=== PATIENT | male | born 1985 | race Caucasian/White ===

== ENCOUNTER 2019-04-13 17:35 | Emergency (ER) | payer SELFPAY ==
[2019-04-13 17:58] VITALS: BP 127/85; PULSE 112
--- NOTE | 2019-04-13 18:30 | EDM.PDOC ---
ED HPI GENERAL MEDICAL PROBLEM - General Chief Complaint: Lower Extremity Injury/Pain Stated Complaint: R ANKLE INJURY Time Seen by Provider: 04/13/19 18:20 Source of Information: Reports: Patient History Limitations: Reports: No Limitations - History of Present Illness INITIAL COMMENTS - FREE TEXT/NARRATIVE: 33-year-old male presents the ED with an acute injury to his right ankle in the early hours of April 12. Patient states he slipped and fell on the ice. He recognized that he had injured his right ankle initially was able to walk on it slightly but today he is able to only walk on the heel of his leg. Denies any other injuries. Onset: Sudden Onset Date: 04/12/19 Onset Time: 01:00 Duration: Hour(s): Location: Reports: Upper Extremity, Right Quality: Reports: Ache, Throbbing Severity: Moderate Improves with: Reports: Rest Worsens with: Reports: Movement Context: Reports: Trauma (Slipped and fell on the ice with a inversion injury to his right ankle and fell to the ground.). Denies: Activity, Exercise, Lifting (Especially trying to weight-bear.), Sick Contact, Other Associated Symptoms: Reports: No Other Symptoms Treatments [employer]: Reports: NSAIDS Right Ankle Pain Score (Numeric/FACES): 7 - Related Data Allergies Allergy/AdvReac Type Severity Reaction Status Date / Time No Known Allergies Allergy Verified 04/13/19 17:58 Home Meds: Home Meds . 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 Social & Family History - Tobacco Use Smoking Status *Q: Never Smoker Second Hand Smoke Exposure: No - Caffeine Use Caffeine Use: Reports: Coffee - Recreational Drug Use Recreational Drug Use: No - Living Situation & Occupation Living situation: Reports: Occupation: Employed Review of Systems - Review of Systems Review Of Systems: See Below Constitutional: Reports: No Symptoms Eyes: Reports: No Symptoms Ears: Reports: No Symptoms Nose: Reports: No Symptoms Mouth/Throat: Reports: No Symptoms Respiratory: Reports: No Symptoms Cardiovascular: Reports: No Symptoms GI/Abdominal: Reports: No Symptoms Genitourinary: Reports: No Symptoms Musculoskeletal: Reports: No Symptoms Skin: Reports: No Symptoms Neurological: Reports: No Symptoms Psychiatric: Reports: No Symptoms ED EXAM, GENERAL - Physical Exam Exam: See Below Exam Limited By: No Limitations General Appearance: Alert, WD/WN, No Apparent Distress, Other (Capture is listed at 36.8. Heart rate is 112 and sinus. Respiratory 16 BP 127/85 O2 sats 97 % on room air.) Peripheral Pulses: 2+: Posterior Tibial (L), Posterior Tibial (R), Dorsalis Pedis (L), Dorsalis Pedis (R) Extremities: Other (Examination was limited to the right lower extremity. Patient has significant pain on palpation of the head of his right fibula suggesting possible fracture in this area. Squeeze test mid tib-fib shaft cause significant pain in his ankle. Ankle reveals swelling lateral aspect of the ankle involving all of the ligaments. There is slight tenderness of the anterior ligament medially. Deltoid ligament is intact. A non-squeeze test of the metastatic tarsals or the fifth metatarsal head.) Neurological: Alert, Oriented, CN II-XII Intact, Normal Cognition. No: Normal Gait Psychiatric: Normal Affect, Normal Mood Skin Exam: Warm, Dry, Intact, Normal Color, No Rash Course - Vital Signs Last Recorded V/S: Last Vital Signs Temp 36.8 C 04/13/19 17:56 Pulse 112 H 04/13/19 17:56 Resp 16 04/13/19 17:56 BP 127/85 04/13/19 17:56 Pulse Ox 97 04/13/19 17:56 - Orders/Labs/Meds Orders: Active Orders 24 hr Category Date Time Status Ankle Min 3V Rt [CR] Stat Exams 04/13/19 18:27 Taken Tibia Fibula Rt [CR] Stat Exams 04/13/19 18:25 Taken Durable Medical Equipment for Discharge [DME for Oth 04/13/19 19:27 Ordered Discharge] [COMM] Stat Durable Medical Equipment for Discharge [DME for Oth 04/13/19 19:28 Ordered Discharge] [COMM] Stat - Radiology Interpretation Free Text/Narrative:: 33-year-old male attends the ED with an acute injury to his right lower extremity in the wee hours of April 12 when he slipped and fell on the ice. Sounds like he suffered a severe twist injury to his foot and ankle causing him to fall to the ground. Subsequently he has developed increasing pain and swelling lateral aspect of the right ankle and inability to walk other than slight weightbearing on his heel on the right side. On examination he has pain over the proximal fibular head suggesting possible fracture. Squeeze test was positive mid tib-fib suggesting possible fracture in the fibula. Right ligament in his ankle is intact. Lids are all swollen. Tib-fib and ankle to be done. - Re-Assessments/Exams Free Text/Narrative Re-Assessment/Exam: 04/13/19 19:28 x-ray of the right tib-fib and ankle are negative for any fractures. The talus is intact. For placed in a Naldo wrap around the ankle. He will be nonweightbearing crutch walking. 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 Advised to use crutches for at least 4 days. It is much as possible and apply ice pack for the remainder tonight one half hour every 4 hours. Tomorrow he may use heat sensitivity 48 hours since time of injury. Motrin 600 mg every 6 hours to reduce pain and inflammation. Expect about 14 days to recover completely from sprained ankle Departure - Departure Time of Disposition: 19:29 Disposition: Home, Self-Care 01 Condition: Fair Clinical Impression: Sprain of ankle, calcaneofibular ligament Qualifiers: Encounter type: initial encounter Laterality: right Qualified Code(s): S93.411A - Sprain of calcaneofibular ligament of right ankle, initial encounter - Discharge Information *PRESCRIPTION DRUG MONITORING PROGRAM REVIEWED*: Not Applicable *COPY OF PRESCRIPTION DRUG MONITORING REPORT IN PATIENT LYNDA: Not Applicable Instructions: Ankle Sprain, Phase I Rehab-SportsMed, Ankle Sprain, Ankle Exercises-SportsMed Referrals: Charanjit Buenrostro PA-C [Primary Care Provider] - Forms: ED Department Discharge Additional Instructions: Evaluation the emergency room today in regards to acute injury to your right ankle from slipping on the ice night before last. His all today and significant swelling and strain of the lateral ligaments of the right ankle. The medial or inside ligaments of the ankle appreciated as well. He had significant pain to palpation over the proximal fibular head but x-rays of the tib-fib in this area around her knee did not show any fractures. Similarly there was no fractures identified in your true ankle joint. Diagnosis sprain primarily lateral ankle ligaments. Treatment is Naldo wrap on during the day and off at night. Ice pack to the area one half hour out of every 4 hours today. After this may apply heat to the area one half hour every 4 hours to reduce pain and swelling. Motrin 600 mg every 6 hours as needed to reduce pain. Elevate as much as possible. Nonweightbearing crutch walking for about 4-5 days and then may start to walk with a well laced up boot to prevent a recurrent inversion injury. Expect about 14 days for the ankle to heal good enough to walk up a flight of stairs pain- free. Follow-up with personal care physician if not completely back to normal in 2 weeks' time Sepsis Event Note - Evaluation Sepsis Screening Result: No Definite Risk - Focused Exam Vital Signs: Vital Signs Temp Pulse Resp BP Pulse Ox 04/13/19 17:56 36.8 C 112 H 16 127/85 97 Date Exam was Performed: 04/13/19 Time Exam was Performed: 19:32 - My Orders Last 24 Hours: My Active Orders 04/13/19 18:25 Tibia Fibula Rt [CR] Stat 04/13/19 18:27 Ankle Min 3V Rt [CR] Stat 04/13/19 19:27 Durable Medical Equipment for Discharge [DME for Discharge] [COMM] Stat 04/13/19 19:28 Durable Medical Equipment for Discharge [DME for Discharge] [COMM] Stat - Assessment/Plan Last 24 Hours: My Active Orders 04/13/19 18:25 Tibia Fibula Rt [CR] Stat 04/13/19 18:27 Ankle Min 3V Rt [CR] Stat 04/13/19 19:27 Durable Medical Equipment for Discharge [DME for Discharge] [COMM] Stat 04/13/19 19:28 Durable Medical Equipment for Discharge [DME for Discharge] [COMM] Stat
--- NOTE | 2019-04-13 19:44 | CR ---
Right ankle: 4 views of the right ankle were obtained. Comparison: No prior ankle exam. Mild soft tissue swelling is noted. Ankle mortise is symmetric. No fracture, dislocation or other bony abnormality is seen. Impression: 1. Soft tissue swelling. 2. Right ankle exam is otherwise unremarkable. Diagnostic code #2 This report was dictated in [place] Standard Time
--- NOTE | 2019-04-13 19:44 | CR ---
Right tibia and fibula: AP and lateral views of the right tibia and fibula were obtained. Comparison: No previous study. Soft tissue swelling is again noted within the lateral left ankle. No fracture or other abnormality is seen within the right tibia or fibula. Impression: 1. Soft tissue swelling within the lateral ankle. 2. Right tibia and fibula study is otherwise unremarkable. Diagnostic code #2 This report was dictated in [place] Standard Time
== END 2019-04-13 19:43 | disposition home or self-care (01) ==
LOC: JD.ED 17:35
DX: S93.411A Sprain of calcaneofibular ligament of right ankle, initial encounter (principal); W00.0XXA Fall on same level due to ice and snow, initial encounter
CPT/HCPCS: 73590-26-RT; 73590-RT; 73610-26-RT; 73610-RT; 99282; 99283-25

== ENCOUNTER 2020-01-23 13:08 | Emergency (ER) | payer BC ==
--- NOTE | 2020-01-23 16:02 | EDM.PDOC ---
ED HPI GENERAL MEDICAL PROBLEM - General Chief Complaint: Eye Problems Time Seen by Provider: 01/23/20 14:46 Source of Information: Reports: Patient, RN Notes Reviewed - History of Present Illness INITIAL COMMENTS - FREE TEXT/NARRATIVE: FB L eye from working under a car yesterday afternoon. Started getting a lot more uncomfortable last evening, scratchy FB irritation continues today. Does not wear contacts. 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 Social & Family History - Caffeine Use Caffeine Use: Reports: Coffee - Living Situation & Occupation Living situation: Reports: Occupation: Employed ED ROS GENERAL - Review of Systems Review Of Systems: See Below Constitutional: Denies: Fever, Chills HEENT: Reports: Eye Pain Respiratory: Reports: No Symptoms Cardiovascular: Reports: No Symptoms GI/Abdominal: Reports: No Symptoms Musculoskeletal: Reports: No Symptoms Skin: Reports: No Symptoms ED EXAM GENERAL W FULL EYE - Physical Exam Exam: See Below General Appearance: Alert, No Apparent Distress Eye Exam: Left Eye: Conjunctival Injection, Foreign Body (there is a rust ring L lateral cornea L of center from prior metallic FB. ) Conjunctiva & Sclera: Left: Injected Cornea Exam: Left: Foreign Body (there is a rust ring on the L cornea lateral to mid cornea, central clearing compatable with metal fragment gone) Head: No: Facial Swelling, Facial Tenderness Respiratory/Chest: No Respiratory Distress Neurological: Alert, Oriented, No Motor/Sensory Deficits Skin Exam: Warm, Dry, Normal Color, No Rash Course - Vital Signs Last Recorded V/S: Last Vital Signs Temp 98.4 F 01/23/20 13:28 Pulse Resp 20 01/23/20 13:28 BP 126/88 01/23/20 13:28 Pulse Ox 97 01/23/20 13:28 - Re-Assessments/Exams Free Text/Narrative Re-Assessment/Exam: 01/23/20 18:16 I did attempt to remove the rust ring with an eye spud but the outer layers of cornea very firm, not easily removed at this time. Will be better to let that soften with the ongoing inflamation over the next 48 hrs, have him follow up with his eye Dr Banuelos. Pt is agreeable with that plan. Discharge instr. as documented. Departure - Departure Time of Disposition: 15:58 Disposition: Home, Self-Care 01 Condition: Fair Clinical Impression: Foreign body in cornea, left eye, initial encounter - Discharge Information Prescriptions: Acetaminophen/HYDROcodone [[place] 325-5 MG] 1 tab PO Q6H PRN #8 tablet PRN Reason: Pain Instructions: Eye Foreign Body, Gyph-he-[id number] Referrals: PCP,None [Primary Care Provider] - Forms: ED Department Discharge Additional Instructions: wear patch L eye as needed to reduce blinking irritation and discomfort. Tobramycin eye opthalmic soln. 1 drop L eye 3 to 4 times daily for 5 days. alternate tylenol and ibuprofen as needed for discomfort or you may take hydrococodone if needed for severe pain. Do not drive or work when taking hydrocodone. You do have a rust ring still present L cornea. See your eye Dr Banuelos for reeval. The rust ring will be softer and easier to remove at the time. Sepsis Event Note (ED) - Focused Exam Vital Signs: Vital Signs Temp Resp BP Pulse Ox 01/23/20 13:28 98.4 F 20 126/88 97
[2020-01-23 16:55] VITALS: BP 126/88
== END 2020-01-23 16:05 | disposition home or self-care (01) ==
LOC: JD.ED 13:08
DX: T15.02XA Foreign body in cornea, left eye, initial encounter (principal); W45.8XXA Other foreign body or object entering through skin, initial encounter; Y93.89 Activity, other specified
CPT/HCPCS: 99283

== ENCOUNTER 2022-03-07 13:47 | Emergency (ER) | payer SELFPAY ==
[2022-03-07] MEDS ORDERED: Alum Hydrox/Mag Hydrox/Simeth 30 ML, Lidocaine 2% 15 ML PO ONE ×2 (16:17)
[2022-03-07] MEDS ORDERED: Sodium Chloride 0.9% 10 ML Syringe FLUSH PRN (16:17)
[2022-03-07 16:59] LABS: ESTIMATED GFR 99 mL/min (>60)
[2022-03-07] MEDS ORDERED: Sucralfate 1 GM Tab PO ONE (18:39)
[2022-03-07 18:50] VITALS: BP 112/79; PULSE 91
== END 2022-03-07 18:40 | disposition home or self-care (01) ==
LOC: JD.ED 13:47
DX: K29.00 Acute gastritis without bleeding (principal); F17.210 Nicotine dependence, cigarettes, uncomplicated
CPT/HCPCS: 36415; 80053; 83690; 85025; 86140; 99284; A9270; J3490